=== PATIENT | male | born 1990 | race Caucasian/White ===

== ENCOUNTER 2023-03-21 10:36 | Emergency (ER) | payer BC, SELFPAY ==
[2023-03-21 10:41] VITALS: BP 116/73; PULSE 92; RESP 20; TEMP 36.6; O2SAT 97; BMI 37.6
--- NOTE | 2023-03-21 10:54 | XR_ITS ---
The [address] [address] Patient Name: ALAINA SPRINGER MRN: [facility]:[id number] date: 1990 Sex: M Assigned Patient Location: ER Current Patient Location: Accession/Order Number: [id number] Exam Date: 03/21/2023 11:25 Report Date: 03/21/2023 12:30 At the request of: ELIZABETH SPRINGER Procedure: XR tibia fibula LT 2V EXAM: XR tibia fibula LT 2V HISTORY: atraumatic pain COMPARISON: None. TECHNIQUE: AP, lateral radiographs of the left tibia/fibula. FINDINGS: No acute fracture, dislocation, or joint pathology. Normal mineralization and alignment. No radiopaque foreign body. No air within the soft tissues. The soft tissues are normal. XR/XR tibia fibula LT 2V IMPRESSION: 1. No acute osseous abnormality. Electronically authenticated by: MELANIE FRY Date: 03/21/2023 12:30
--- NOTE | 2023-03-21 10:55 | ED.GENADUL1 ---
HPI - General Adult General Chief complaint: Extremity Injury, Lower Stated complaint: LOWER EXTREMITY PAIN Time Seen by Provider: 03/21/23 10:44 Source: patient Mode of arrival: walk-in Limitations: no limitations History of Present Illness HPI narrative: 32-year-old male presents for pain to his left calf. He's had it for a few days. He recalls no injury or unusual activity. His ankle and knee do not hurt and the contralateral calf doesn't hurt either. He was worried he might have a blood clot though he's never had one before. Related Data Allergies Allergy/AdvReac Type Severity Reaction Status Date / Time No Known Drug Allergies Allergy Verified 03/21/23 10:46 Review of Systems ROS Narrative A ten point review of systems is negative except as noted above. PFSH PFSH Social History Smoking status: Former smoker Exam Narrative Exam Narrative: Nurses note and vital signs reviewed and patient is not hypoxic. General: The patient appears well and in no apparent distress. Patient is resting comfortably on cart. Skin: Warm, dry, no pallor noted. There is no rash noted. Head: Normocephalic, atraumatic Eye: Normal conjunctiva, no drainage Ears, Nose, Mouth, and Throat: oral mucosa is moist. Nares patent. Cardiovascular: Regular Rate and Rhythm Respiratory: Patient is in no distress, no accessory muscle use, lungs are clear to auscultation, no wheezing, rales or rhonchi Back: non-tender, no CVA tenderness bilaterally to percussion. GI: soft and nontender Musculoskeletal: the left knee and ankle are nontender and have good full range of motion. The left calf seems have some tenderness but there is no swelling mass bruise or rash. Neurological: A&O, normal speech Psychiatric: Cooperative Constitutional Vital Signs, click to edit/add: Last Vital Signs Temp 97.9 F 03/21/23 10:41 Pulse 86 03/21/23 11:34 Resp 18 03/21/23 11:34 BP 128/90 03/21/23 11:34 Pulse Ox 99 03/21/23 11:34 O2 Del Method Room Air 03/21/23 10:41 Course Vital Signs Vital signs: Vital Signs Temperature 97.9 F 03/21/23 10:41 Pulse Rate 92 H 03/21/23 10:41 Respiratory Rate 20 03/21/23 10:41 Blood Pressure 116/73 03/21/23 10:41 Pulse Oximetry 97 03/21/23 10:41 Oxygen Delivery Method Room Air 03/21/23 10:41 Temperature 97.9 F 03/21/23 10:41 Pulse Rate 86 03/21/23 11:34 Respiratory Rate 18 03/21/23 11:34 Blood Pressure 128/90 03/21/23 11:34 Pulse Oximetry 99 03/21/23 11:34 Oxygen Delivery Method Room Air 03/21/23 10:41 Medical Decision Making MDM Narrative Medical decision making narrative: d-dimer is normal and x-ray shows no acute findings. He was recommended ice and Motrin. My clinical impression of this point is that this is muscular pain. Treatment diagnosis and follow-up were discussed with the patient. Differential Diagnosis Differential Diagnosis: deep vein thrombosis, muscle strain, fracture Lab Data Lab results reviewed: Yes I reviewed the patient's lab results Labs: Lab Results 03/21/23 Range/Units 11:05 D-Dimer <0.19 (<=0.59) mg/L FEU Imaging Data left tibia: My impression: no acute findings Discharge Plan Discharge Chief Complaint: Extremity Injury, Lower Clinical Impression: Pain of left calf Patient Disposition: Home, Self-Care Time of Disposition Decision: 12:16 Condition: Good Mode of Transportation: Private Vehicle Instructions: Leg Pain (ED) Stand Alone Forms: Portal Instructions Referrals: Physician,Non-Staff, MD [Primary Care Provider] - 1 week
[2023-03-21 11:34] VITALS: BP 128/90; PULSE 86; RESP 18; O2SAT 99
[2023-03-21 11:38] LABS: D Dimer <0.19 mg/L FEU (<=0.59)
== END 2023-03-21 12:24 | disposition home or self-care (01) ==
PROVIDERS: Emergency Provider Emergency Medicine; PCP Family Medicine
DX: M79.662 Pain in left lower leg (principal); Z87.891 Personal history of nicotine dependence
CPT/HCPCS: 36415; 73590; 85378; 99283